=== PATIENT | female | born 1955 | race Caucasian/White ===

== ENCOUNTER → 2017-11-29 | Outpatient (CLI) | payer OTHER ==
[~2017-11-29] MED LIST: ASPI81CH PO; BENAML10/2 PO; CARI350; CHOL10002 PO; DOC250 PO; DOCU100 PO; DULO60 PO; ESTR.625 PO; GLUCHON PO; HYDACE5 PO; HYDMOR2 PO; HYDR1TAB94 PO; IBUP800; OXYACE5T PO; PROM25 PO; RXOXYACE PO; SENNP PO; STOOL SOFTENERS; ZOLP10 PO; ZOLP5 PO
== END ==
LOC: LAB SHORT 12:59 → LAB 12:59
DX: N39.0 Urinary tract infection, site not specified (principal)
CPT/HCPCS: 87086

== ENCOUNTER → 2017-12-07 | Outpatient (CLI) | payer OTHER | LOC: LAB SHORT 15:17 → LAB 15:17 | DX: N39.0 Urinary tract infection, site not specified (principal) | CPT/HCPCS: 87086 ==

== ENCOUNTER 2019-01-01 06:47 | Day surgery (SDC) | payer MEDICARE ==
[~2019-01-01] VITALS: Ht 160 cm; Wt 80.3 kg
[~2019-01-01 06:47] MED LIST changes: +B Complex #11 EACH PO; +Celebrex50 MG PO; +ESOM20 PO; +ESTROVEN ENERG1 EACH PO; +LO-DOSE ASPIRIN81 MG PO; +MULTI FOR HER1 EAC1 PO; +ONDA4ODT MM; +Protonix40 MG PO
[2019-01-01] MEDS ORDERED: FISH OIL 1,0001 EAC1 (07:32)
--- NOTE | 2019-01-01 08:57 | NUR ---
01/01/19 0857 Janae Monteiro LATE ENTRY: DR. BECK AWARE OF PT'S HIGH BP PRE-OPERATIVE. DR. BECK WAS OK TO BRING PT BACK TO THE ENDOSCOPY ROOM TO PROCEED.
--- NOTE | 2019-01-01 09:02 | NUR ---
01/01/19 0902 Janae Monteiro LATE ENTRY: PT WAS BROUGHT BACK TO ENDOSCOPY ROOM. PT BP WAS CHECKED BEFORE ANY SEDATION WAS GIVEN. FIRT BP WAS 220/98. BP CUFF WAS CHANGED AND BP WAS RE-CHECKED WITH RESULT OF 222/100. DR. BECK REQUESTED TO HAVE THE BP CHECKED ON THE OTHER ARM. BP WAS CHECKED WITH RESULT OF 225/99. DR. CLAUDIO WAS CONSULTED CONCERNING HIGH BP. PT'S BP WAS CHECKED ON THE FOREARM WITH THE RESULT OF 221/92. AFTER MULTIPLE BP CHECKED, AND HAVING A HIGH BP RESULT, DR. BECK DECIDED TO CANCEL THE PROCEDURE SCHEDULED FOR TODAY. DR. BECK CALLED PT'S PCP AND PT WAS SENT TO PCP AFTER DISCHARGE FROM [facility]. PT DENIED ANY PAIN. PT DID NOT RECEIVE ANY SEDATION FOR TODAY. PT WAS DISCHARGE FROM [facility] WITH FAMILY MEMBER.
--- NOTE | 2019-01-01 15:27 | NUR ---
01/01/19 1527 Janae Monteiro LATE ENTRY: PRIMARY CARE COMMUNICATION LETTER SENT TO PT'S DOCTOR CONCERNING TODAY'S BP RESULTS
== END 2019-01-01 08:40 | disposition home or self-care (01) ==
LOC: ORSCSDS 06:47
DX: R10.9 Unspecified abdominal pain (principal); Z53.9 Procedure and treatment not carried out, unspecified reason; Z86.010 Personal history of colon polyps
CPT/HCPCS: J2405; J2704; J7120

== ENCOUNTER 2019-02-12 07:41 | Day surgery (SDC) | payer MEDICARE ==
[~2019-02-12] VITALS: Ht 160 cm; Wt 78.8 kg
[~2019-02-12 07:41] MED LIST changes: +BENA20; +FISH OIL 1,0001 EAC1
[2019-02-12] MEDS ORDERED: Azor 5-20 MG T1 EACH (08:42)
== END 2019-02-12 10:09 | disposition home or self-care (01) ==
LOC: ORSCSDS 07:41
PROVIDERS: Student in an Organized Health Care Education/Training Program
PROC: 0DBN8ZX Excision of Sigmoid Colon, Via Natural or Artificial Opening Endoscopic, Diagnostic (ICD-10-PCS; principal; 2019-02-12 09:00)
DX: Z12.11 Encounter for screening for malignant neoplasm of colon (principal); Z86.010 Personal history of colon polyps; K63.5 Polyp of colon; K64.8 Other hemorrhoids; K62.89 Other specified diseases of anus and rectum; K57.30 Diverticulosis of large intestine without perforation or abscess without bleeding; E78.00 Pure hypercholesterolemia, unspecified; I10 Essential (primary) hypertension; Z79.82 Long term (current) use of aspirin; Z79.899 Other long term (current) drug therapy
CPT/HCPCS: 88305; J2704; J7120

== ENCOUNTER → 2019-05-28 | Outpatient (CLI) | payer MEDICARE ==
[~2019-05-28] MED LIST changes: +Azor 5-20 MG T1 EACH
== END | disposition home or self-care (01) ==
LOC: PLD 07:40 → LAB SHORT 07:40
DX: Q82.8 Other specified congenital malformations of skin (principal)
CPT/HCPCS: 88305

== ENCOUNTER 2020-06-12 09:11 | Emergency (ER) | payer MEDICARE ==
[~2020-06-12] VITALS: Ht 160 cm; Wt 78.0 kg
[2020-06-12 09:52] LABS: Source, Urine Clean Catch
[2020-06-12 09:56] LABS: Appearance, Urine Clear (Clear); Bilirubin, Urine Neg (Neg); Blood, Urine 1+ (Neg); Color, Urine Yellow (P-Yellow); Glucose Qualitative, Urine Neg (Neg); Ketones, Urine Neg (Neg); Leukocyte Esterase, Urine 3+ (Neg); Nitrite, Urine Neg (Neg); Protein, Urine 1+ (Neg); Urobilinogen, Urine NORM (Normal)
[2020-06-12 10:11] LABS: Bacteria Mod /hpf; Squamous Epithelial Cells Mod /hpf (Few)
[2020-06-12 10:29] LABS: BASOPHILS ABSOLUTE AUTO 0.01 K/mm3 (0.00-0.23); BASOPHILS PERCENT AUTO 0 % (0-2); EOSINOPHILS ABSOLUTE AUTO 0.03 K/mm3 (0.00-0.68); EOSINOPHILS PERCENT AUTO 0 % (0-6); Hematocrit 39.9 % (33.0-51.0); Hemoglobin 12.8 g/dL (11.5-16.0); IMMATURE GRAN ABSOLUTE AUTO 0.03 K/mm3 (0.00-0.10); IMMATURE GRAN PERCENT AUTO 0 % (0-1); LYMPHOCYTES ABSOLUTE AUTO 1.11 K/mm3 (0.84-5.20); LYMPHOCYTES PERCENT AUTO 15 % (21-46); MONOCYTES ABSOLUTE AUTO 0.38 K/mm3 (0.16-1.47); MONOCYTES PERCENT AUTO 5 % (4-13); Mean Corpuscular HGB Conc 32.1 g/dL (31.5-36.5); Mean Corpuscular Volume 93 fL (80-100); Mean Platelet Volume 10.8 fL (9.1-12.4); NEUTROPHILS ABSOLUTE AUTO 5.87 K/mm3 (1.96-9.15); NEUTROPHILS PERCENT AUTO 79 % (41-73); Platelet Count 143 K/mm3 (150-400); RDW Coefficient Variation 12.8 % (11.7-14.2); RDW Standard Deviation 43.9 fL (35.1-46.3); Red Blood Cell Count 4.27 M/mm3 (3.80-5.20); White Blood Cell Count 7.43 K/mm3 (4.00-11.30)
[2020-06-12 10:42] LABS: Albumin, Blood 3.6 g/dL (3.4-5.0); Albumin/Globulin Ratio 1.2 (0.8-1.8); Bilirubin, Total 0.5 mg/dL (0.1-1.0); Bun/Creatinine Ratio 14.5 (12.0-20.0); Creatinine, Blood 1.24 mg/dL (0.40-1.00); Globulin, Blood 2.9 g/dL (2.2-4.0); Potassium, Blood 4.1 mmol/L (3.5-5.5); Total Protein, Blood 6.5 g/dL (6.4-8.2)
[2020-06-12] MEDS ORDERED: OXYACE7.5T PO (12:15)
[2020-06-12] MEDS ORDERED: ONDA4ODT MM (12:15)
== END 2020-06-12 13:02 | disposition home or self-care (01) ==
LOC: ER 09:11
PROVIDERS: Emergency Medicine
DX: N13.2 Hydronephrosis with renal and ureteral calculous obstruction (principal); Z79.82 Long term (current) use of aspirin; Z88.5 Allergy status to narcotic agent; Z87.442 Personal history of urinary calculi; Z79.899 Other long term (current) drug therapy
CPT/HCPCS: 36415; 74176; 80053; 81001; 83690; 85025; 87086; 96361; 96374; 96375; 96376; 99284-25; J1885; J2405; J3010; J7030

== ENCOUNTER → 2020-08-26 | Outpatient (CLI) | payer MEDICARE ==
[~2020-08-26] MED LIST changes: +OXYACE7.5T PO
[2020-09-09 18:10] LABS: BRUSHITE 0.93 ratio (0.00-3.00); CALCIUM OXALATE 1.61 ratio (0.00-6.00); CALCIUM, URINE 4.6 mg/dL (Not Estab.); CALCIUM, URINE 96.6 mg/24 hr (100.0-300.0); CHLORIDE URINE 103 (110-250); CITRIC ACID (CITRATE) 138 mg/L (Not Estab.); CITRIC ACID(CITRATE) 290 mg/24 hr (320-1240); CREATININE, URINE 36.3 mg/dL (Not Estab.); CREATININE, URINE 762.3 mg/24 hr (800.0-1800.0); MAGNESIUM, URINE 2.1 mg/dL (Not Estab.); OSMOLALITY, URINE 219 (300-900); SODIUM, URINE 122 (39-258); SODIUM, URINE 58 mmol/L (Not Estab.); STRUVITE 0.04 ratio (0.00-1.00); URIC ACID 0.05 ratio (0.00-1.20); URINE VOLUME 2100 mL/24 hr (600-1600); URINE VOLUME (PRESERVATIVE) 2100 mL/24 hr (600-1600)
== END | disposition home or self-care (01) ==
LOC: LAB 15:20 → LAB SHORT 15:20
PROVIDERS: Urology Female Pelvic Medicine and Reconstructive Surgery
DX: N20.1 Calculus of ureter (principal); N21.1 Calculus in urethra
CPT/HCPCS: 81003; 81050; 82131; 82140; 82340; 82436; 82507; 82570; 83735; 83935; 83945; 84105; 84133; 84300; 84392; 84560

== ENCOUNTER 2023-04-18 19:08 | Emergency (ER) | payer MEDICARE ==
[~2023-04-18] VITALS: Ht 167.6 cm; Wt 81.7 kg
[2023-04-18 20:39] LABS: BASOPHILS PERCENT AUTO 0 % (0-2); EOSINOPHILS ABSOLUTE AUTO 0.09 K/mm3 (0.00-0.68); EOSINOPHILS PERCENT AUTO 2 % (0-6); Hematocrit 34.7 % (33.0-51.0); Hemoglobin 11.1 g/dL (11.5-16.0); IMMATURE GRAN ABSOLUTE AUTO 0.01 K/mm3 (0.00-0.10); IMMATURE GRAN PERCENT AUTO 0 % (0-1); LYMPHOCYTES ABSOLUTE AUTO 1.94 K/mm3 (0.84-5.20); LYMPHOCYTES PERCENT AUTO 37 % (21-46); MONOCYTES ABSOLUTE AUTO 0.43 K/mm3 (0.16-1.47); MONOCYTES PERCENT AUTO 8 % (4-13); Mean Corpuscular HGB 29.9 pg (26.0-34.0); Mean Corpuscular Volume 94 fL (80-100); NEUTROPHILS ABSOLUTE AUTO 2.82 K/mm3 (1.96-9.15); NEUTROPHILS PERCENT AUTO 53 % (41-73); Platelet Count 232 K/mm3 (150-400); RDW Coefficient Variation 13.2 % (11.7-14.2); RDW Standard Deviation 44.8 fL (35.1-46.3); Red Blood Cell Count 3.71 M/mm3 (3.80-5.20); White Blood Cell Count 5.29 K/mm3 (4.00-11.30)
[2023-04-18 20:46] LABS: Source, Urine Clean Catch
[2023-04-18 21:00] LABS: Albumin, Blood 3.2 g/dL (3.4-5.0); Albumin/Globulin Ratio 0.9 (0.8-1.8); Bilirubin, Total 0.3 mg/dL (0.1-1.0); Bun/Creatinine Ratio 12.3 (12.0-20.0); Calcium, Blood 8.9 mg/dL (8.5-10.1); Creatinine, Blood 1.06 mg/dL (0.40-1.00); Globulin, Blood 3.4 g/dL (2.2-4.0); Potassium, Blood 3.8 mmol/L (3.5-5.5); Total Protein, Blood 6.6 g/dL (6.4-8.2)
[2023-04-18 21:06] LABS: Appearance, Urine Hazy (Clear); Bilirubin, Urine Neg (Neg); Blood, Urine Neg (Neg); Color, Urine Yellow (P-Yellow); Glucose Qualitative, Urine Neg (Neg); Ketones, Urine Neg (Neg); Leukocyte Esterase, Urine 1+ (Neg); Nitrite, Urine Neg (Neg); Protein, Urine 1+ (Neg); Urobilinogen, Urine NORM (Normal)
[2023-04-18 21:14] LABS: Amorphous Light (0-Heavy); Bacteria Many /hpf; Calcium Oxalate Crystals Many /hpf; Mucus Mod (0-Heavy); Red Blood Cells, Urine 0-2 /hpf (0-2); Squamous Epithelial Cells Few /hpf (Few)
[2023-04-18 23:20] LABS: Magnesium, Blood 2.4 mg/dL (1.6-2.4)
[2023-04-19 00:40] VITALS: BP 193/85
== END 2023-04-19 00:42 | disposition home or self-care (01) ==
LOC: ER 19:08
PROVIDERS: Physician Assistant
DX: R55 Syncope and collapse (principal); R42 Dizziness and giddiness; Z88.5 Allergy status to narcotic agent; Z79.82 Long term (current) use of aspirin
CPT/HCPCS: 80053; 81001; 83735; 83880; 84484; 85025; 87086; 93005; 93010; 99284-25

== ENCOUNTER 2024-12-01 08:02 | Day surgery (SDC) | payer MEDICARE ==
[~2024-12-01] VITALS: Ht 160 cm; Wt 90.0 kg
[~2024-12-01 08:02] MED LIST changes: +Lactated Ringer's 1,000 ML IV ONE; +propofoL 50 ML IV ONE
[2024-12-01] MEDS ORDERED: OMEP20ER (08:24)
[2024-12-01] MEDS ORDERED: GABA100 (08:25)
[2024-12-01] MEDS ORDERED: Lactated Ringer's 1,000 ML IV ONE (08:55)
[2024-12-01 10:09] VITALS: BP 113/65
== END 2024-12-01 10:12 | disposition home or self-care (01) ==
LOC: ORSCSDS 08:02
PROVIDERS: Surgery
PROC: 0DBM8ZX Excision of Descending Colon, Via Natural or Artificial Opening Endoscopic, Diagnostic (ICD-10-PCS; principal; 2024-12-01 09:15)
DX: Z12.11 Encounter for screening for malignant neoplasm of colon (principal); Z86.0101 Personal history of adenomatous and serrated colon polyps; D12.4 Benign neoplasm of descending colon; K57.30 Diverticulosis of large intestine without perforation or abscess without bleeding; I10 Essential (primary) hypertension; E78.00 Pure hypercholesterolemia, unspecified; Z79.82 Long term (current) use of aspirin; Z79.899 Other long term (current) drug therapy
CPT/HCPCS: 88305; J2704; J7120